=== PATIENT | male | born 1980 | race Caucasian/White ===

== ENCOUNTER → 2021-06-26 | Day surgery (SDC) | payer OTHER ==
[~2021-06-26] VITALS: Ht 182.9 cm; Wt 97.5 kg
[~2021-06-26] MED LIST: ONE DAILY COMP1 EAC1 PO
[2021-06-26 06:41] LABS: HCT 44.3 % (42.0-52.0); HGB 15.2 g/dl (13.2-18.0); MCH 30.8 pg (25.0-31.0); MCHC 34.3 g/dL (32.0-36.0); MCV 89.9 fL (78.0-100.0); MPV 8.8 fL (6.0-9.5); RBC 4.93 M/uL (4.70-6.00); RDW 13.3 % (11.5-14.0); WBC 9.5 K/uL (4.0-10.5)
[2021-06-26 07:26] LABS: ALBUMIN 3.5 g/dL (3.4-5.0); BILIRUBIN - TOTAL 0.2 mg/dL (0.2-1.0); BUN/CREAT RATIO (CALC) 20.9 RATIO; CREATININE 0.67 mg/dL (0.67-1.17); GLOBULIN (CALCULATION) 3.2 g/dL; POTASSIUM 4.1 mmol/L (3.5-5.1); TOTAL PROTEIN 6.7 g/dL (6.4-8.2)
== END | disposition home or self-care (01) ==
LOC: FAS 06-06 08:30
PROVIDERS: Orthopaedic Surgery
DX: M76.9 Unspecified enthesopathy, lower limb, excluding foot (principal); M23.41 Loose body in knee, right knee; M17.11 Unilateral primary osteoarthritis, right knee; M25.461 Effusion, right knee; F17.210 Nicotine dependence, cigarettes, uncomplicated; M67.51 Plica syndrome, right knee; M22.41 Chondromalacia patellae, right knee
CPT/HCPCS: 36415; 71045; 80053; 93005; J1100; J1885; J2250; J2405; J2704; J3010; J7120